=== PATIENT | male | born 1980 | race Caucasian/White ===

== ENCOUNTER 2018-12-26 19:29 | Emergency (ER) | payer OTHER ==
[~2018-12-26] VITALS: Ht 177.8 cm; Wt 93.4 kg
[2018-12-26 20:19] LABS: ABSOLUTE EOSINOPHILS 0.1 thou/uL (0.0-0.7); ABSOLUTE LYMPHOCYTES 2.8 thou/uL (0.8-5.3); ABSOLUTE MONOCYTES 0.5 thou/uL (0.0-1.2); ABSOLUTE NEUTROPHILS 3.7 thou/uL (1.6-8.1); BASOPHILS 0.5 %; EOSINOPHILS 1.7 %; HEMATOCRIT 44.5 % (42.0-52.0); HEMOGLOBIN 15.8 gm/dL (14.0-18.0); MCH 31.4 pg (26.0-34.0); MCHC 35.4 g/dL (28.0-37.0); MCV 88.7 fL (80.0-100.0); MONOCYTES 6.9 %; MPV 10.1 fl. (7.2-11.1); NUCLEATED RBCS 0 /100WBC; PLATELET COUNT* 227 thou/uL (150-400); POLYS 51.9 %; RBC 5.02 mil/uL (4.50-6.00); RDW-CV 13.5 % (10.5-14.5); WBC 7.1 thou/uL (4.0-11.0)
[2018-12-26 20:32] LABS: CALCIUM 9.5 mg/dL (8.5-10.1); CREATININE 1.2 mg/dL (0.6-1.3)
[2018-12-26 20:33] LABS: PROTIME 10.4 Seconds (9.20-11.50)
[2018-12-26 20:43] LABS: ALBUMIN 4.2 g/dL (3.4-5.0); TOTAL BILIRUBIN 0.3 mg/dL (<0.1-1.0); TOTAL PROTEIN 7.5 g/dL (6.4-8.2)
[2018-12-26 21:34] VITALS: BP 133/82
--- NOTE | 2018-12-27 11:27 | EKG ---
[place] [id number] ELECTROCARDIOGRAM REPORT Name: CASEWILLIAM Room: [facility]#: [id number] Admission: 12/26/18 Attend Phys: Discharge: 12/26/18 Date of : 84 Report #: [id number] THIS REPORT FOR: //name// [facility] ED Test Date: 2018-12-26 Test Time: 19:35:36 Pat Name: WILLIAM BERNABE Department: Room: Gender: [employer]: : 1980 Requested By: Abigail Kenney Order Number: [id number] MD: Adrian Haines Measurements Intervals [place] Rate: 97 P: 69 [place]: 163 QRS: -54 QRSD: 122 T: 52 QT: 352 QTc: 447 Interpretive Statements Sinus arrhythmia Ventricular premature complex left anterior fasicular block No previous ECG available for comparison Electronically Signed On 12-27-2018 11:27:10 CDT by Adrian Haines [email or web address] <ELECTRONICALLY SIGNED> By: Adrian Haines MD, [facility] 12/27/18 [id number] 34 Adrian Haines MD, FACC /EPI
== END 2018-12-26 21:34 | disposition home or self-care (01) ==
LOC: M.ERS 19:29
PROVIDERS: Emergency Medicine
DX: R07.89 Other chest pain (principal); F41.9 Anxiety disorder, unspecified; Z88.0 Allergy status to penicillin; F12.10 Cannabis abuse, uncomplicated